=== PATIENT | male | born 1995 | race Hispanic/Latino ===

== ENCOUNTER 2016-09-27 20:35 | Emergency (ER) | payer MEDICAID, OTHER ==
[~2016-09-27] VITALS: Ht 167.6 cm; Wt 6.8 kg
[~2016-09-27 20:35] MED LIST: ACYC400T2 PO
[2016-09-27 20:41] VITALS: BP 125/79; PULSE 93; RESP 16; O2SAT 99
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
== END 2016-09-27 21:46 | disposition home or self-care (01) ==
LOC: SED 20:35
DX: S63.502A Unspecified sprain of left wrist, initial encounter (principal); Y04.8XXA Assault by other bodily force, initial encounter; Y92.512 Supermarket, store or market as the place of occurrence of the external cause; Y93.89 Activity, other specified; Y99.8 Other external cause status; F17.200 Nicotine dependence, unspecified, uncomplicated; Z59.0 Homelessness